=== PATIENT | female | born 2000 | race Caucasian/White ===

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

== ENCOUNTER → 2020-08-31 | Outpatient (CLI) | payer BC, MEDICAID ==
[2020-08-31 14:16] LABS: BASO # 0.02 (0.02-0.10); EOS # 0.08 (0.04-0.40); EOS % 1.5 % (1.0-5.0); HEMATOCRIT 41.9 % (37.0-47.0); LYMPH# 2.36 (1.50-4.00); MEAN CELL VOLUME 94 fl (78-100); MEAN CORPUSCULAR HEMOGLOBIN 31 pg (27-31); MEAN CORPUSCULAR HGB CONC 33 g/dL (33-37); MEAN PLATELET VOLUME 10.1 fl (7.4-10.4); MONO # 0.47 (0.20-0.80); NEU # 2.37 (1.40-6.50); RED BLOOD COUNT 4.46 M/mm3 (4.10-5.30); WHITE BLOOD COUNT 5.3 K/mm3 (4.8-10.8)
[2020-08-31 14:39] LABS: PLATELET COUNT 159 K/mm3 (130-400)
[2020-08-31 14:57] LABS: ALBUMIN 4.2 g/dL (3.5-5.0); POTASSIUM 3.9 mmol/L (3.5-5.1)
[2020-08-31 14:58] LABS: CALCIUM 9.2 mg/dL (8.3-10.5)
[2020-08-31 14:59] LABS: TOTAL PROTEIN 6.5 g/dL (6.4-8.3)
[2020-08-31 15:01] LABS: TOTAL BILIRUBIN 0.3 mg/dL (0.2-1.2)
== END ==
LOC: LAB 13:32
DX: R56.9 Unspecified convulsions (principal)

== ENCOUNTER → 2021-10-08 | Outpatient (CLI) | payer BC, MEDICAID ==
[2021-10-08 10:52] LABS: BASO # 0.02 K/mm3 (0.02-0.10); EOS # 0.12 K/mm3 (0.04-0.40); EOS % 2.2 % (1.0-5.0); HEMATOCRIT 41.3 % (37.0-47.0); HEMOGLOBIN 14.1 g/dL (12.5-16.0); LYMPH# 2.06 K/mm3 (1.50-4.00); MEAN CELL VOLUME 91 fl (78-100); MEAN CORPUSCULAR HEMOGLOBIN 31 pg (27-31); MEAN CORPUSCULAR HGB CONC 34 g/dL (33-37); MEAN PLATELET VOLUME 9.3 fl (7.4-10.4); MONO # 0.55 K/mm3 (0.20-0.80); NEU # 2.66 K/mm3 (1.40-6.50); PLATELET COUNT 227 K/mm3 (130-400); RED BLOOD COUNT 4.53 M/mm3 (4.10-5.30); RED CELL DISTRIBUTION WIDTH 12.1 % (11.5-14.5); WHITE BLOOD COUNT 5.4 K/mm3 (4.8-10.8)
[2021-10-08 16:12] LABS: ALBUMIN 4.1 g/dL (3.5-5.0)
[2021-10-08 16:13] LABS: POTASSIUM 3.8 mmol/L (3.5-5.1)
[2021-10-08 16:14] LABS: CALCIUM 9.2 mg/dL (8.3-10.5)
[2021-10-08 16:15] LABS: TOTAL PROTEIN 6.6 g/dL (6.4-8.3)
[2021-10-08 16:17] LABS: TOTAL BILIRUBIN 0.5 mg/dL (0.2-1.2)
== END ==
LOC: LAB 10:30
PROVIDERS: Neurological Surgery
DX: R56.9 Unspecified convulsions (principal)

== ENCOUNTER → 2023-09-25 | Outpatient (CLI) | payer BC, MEDICAID ==
[2023-09-25 11:49] LABS: BASO # 0.01 K/mm3 (0.02-0.10); EOS # 0.09 K/mm3 (0.04-0.40); EOS % 1.7 % (1.0-5.0); HEMATOCRIT 43.2 % (37.0-47.0); HEMOGLOBIN 14.7 g/dL (12.5-16.0); LYMPH# 1.95 K/mm3 (1.50-4.00); MEAN CELL VOLUME 93 fl (78-100); MEAN CORPUSCULAR HEMOGLOBIN 32 pg (27-31); MEAN CORPUSCULAR HGB CONC 34 g/dL (33-37); MEAN PLATELET VOLUME 9.8 fl (7.4-10.4); MONO # 0.48 K/mm3 (0.20-0.80); NEU # 2.62 K/mm3 (1.40-6.50); PLATELET COUNT 230 K/mm3 (130-400); RED BLOOD COUNT 4.65 M/mm3 (4.10-5.30); WHITE BLOOD COUNT 5.2 K/mm3 (4.8-10.8)
[2023-09-25 11:53] LABS: ALBUMIN 4.2 g/dL (3.5-5.0)
[2023-09-25 11:54] LABS: CALCIUM 9.4 mg/dL (8.3-10.5)
[2023-09-25 11:55] LABS: TOTAL PROTEIN 6.4 g/dL (6.4-8.3)
[2023-09-25 11:57] LABS: TOTAL BILIRUBIN 0.6 mg/dL (0.2-1.2)
== END ==
LOC: LAB 09-22 10:40
PROVIDERS: Neurological Surgery
DX: R56.9 Unspecified convulsions (principal)

== ENCOUNTER → 2023-10-09 | Outpatient (CLI) | payer BC, MEDICAID | LOC: LAB 14:34 | DX: R56.9 Unspecified convulsions (principal) ==